=== PATIENT | male | born 1980 | race African-American/Black ===

== ENCOUNTER 2020-03-01 15:35 | Emergency (ER) | payer SELFPAY ==
[~2020-03-01] VITALS: Ht 172.7 cm; Wt 95.4 kg
[2020-03-01] MEDS ORDERED: IV NORMAL SALINE 1,000ML 1,000 ML IV ONE (16:00)
[2020-03-01 16:09] VITALS: BP 146/89
--- NOTE | 2020-03-02 13:04 | PHYS DOC ---
Past History Past Medical History: Other Additional Past Medical Histor: Unable to assess at this time. Past Surgical History: Other Additional Past Surgical Histo: unable to assess at this time. Alcohol Use: None Additional Alcohol Information: Unable to assess at this time Social History Narrative: Unable to assess at this time General Adult EDM: Chief Complaint: ALTERED MENTAL STATUS HPI: HPI: 39-year-old male presents via EMS with altered mental status. I was unable to interview the patient because he left AMA prior to my seeing him. From what I observed, he was uncooperative, mildly belligerent, and intoxicated in some manner. The stated history was that he took Adderall and smokes of marijuana. Review of Systems: Review of Systems: Unable to perform due to AMA Heart Score: Risk Factors: Risk Factors: DM, Current or recent (<one month) smoker, HTN, HLP, family history of CAD, obesity. Risk Scores: Score 0 - 3: 2.5% MACE over next 6 weeks - Discharge Home Score 4 - 6: 20.3% MACE over next 6 weeks - Admit for Clinical Observation Score 7 - 10: 72.7% MACE over next 6 weeks - Early Invasive Strategies Current Medications: Current Meds: Current Medications Medications (Trade) Dose Ordered Sig/Nathan Start Time Stop Time Status Last Admin Dose Admin Sodium Chloride 1,000 ml @ 1,000 mls/hr 1X ONCE 03/01/20 16:00 03/01/20 16:36 DC Allergies: Allergies: Allergies Coded Allergies Type Severity Reaction Last Updated Verified No Known Drug Allergies 03/01/20 No Physical Exam: PE: Patient left AMA Current Patient Data: Vital Signs: Vital Signs Date Time Temp Pulse Resp B/P (MAP) Pulse Ox O2 Delivery O2 Flow Rate FiO2 03/01/20 16:09 122 16 146/89 (108) 96 Room Air EKG: EKG: [] Radiology/Procedures: Radiology/Procedures: [] Course & Med Decision Making: Course & Med Decision Making Pertinent Labs and Imaging studies reviewed. (See chart for details) [] Dragon Disclaimer: [place]isl[place] Disclaimer: This electronic medical record was generated, in whole or in part, using a voice recognition dictation system. Departure Departure: Impression: Primary Impression: Patient left without being seen Disposition: AGAINST MEDICAL ADVICE Condition: LEFT WITHOUT BEING SEEN Referrals: PCP,NO (PCP) Justification of Admission: Justification of Admission: Justification of Admission Dx: N/A RAMOS PARIS DO Mar 02, 2020 13:04
== END 2020-03-01 16:30 | disposition left against medical advice (07) ==
LOC: ER 15:35 → EDBD 15:35 → ER 16:30
DX: R41.82 Altered mental status, unspecified (principal); Z53.21 Procedure and treatment not carried out due to patient leaving prior to being seen by health care provider

== ENCOUNTER 2020-03-01 17:25 | Emergency (ER) | payer SELFPAY ==
[~2020-03-01] VITALS: Ht 172.7 cm; Wt 95.4 kg
--- NOTE | 2020-03-01 19:10 | PHYS DOC ---
Past History Past Medical History: High Cholesterol, Other Additional Past Medical Histor: ADHD Past Surgical History: No Surgical History Additional Past Surgical Histo: unable to assess at this time. Alcohol Use: None Social History Narrative: CBD Adult General Chief Complaint Chief Complaint: ALTERED MENTAL STATUS HPI HPI Patient is a 39-year-old male who presents for second time at our ER today for evaluation. Per prior documentation and report from nursing staff and local EMS personnel, patient is from [facility] and travels out to local region often to abuse cannabinoids and other illicit substances. Patient was poor his [place] out an area doing such thing today when on an abnormal behavior prompted bystanders with him to call EMS for transport here for evaluation. Patient el oped/left AMA prior in the day. Nonetheless, patient re-presented today via EMS after being found by bystanders with concern for delirium/AMS. Patient combative with EMS personnel in route. No medications were administered. Patient met by in our ER and nonverbal at present. reports patient is not at baseline, denies ever seeing patient like this. She confirms his history of cannabinoid and other illicit drug abuse. She is unsure of series of events today, she is unsure other individuals patient was engaging in drug use with today Review of Systems Review of Systems Unobtainable given patient's delirium and inability to cooperate with examination Allergies Allergies Allergies Coded Allergies Type Severity Reaction Last Updated Verified No Known Drug Allergies 03/01/20 No Physical Exam Physical Exam Constitutional: Well developed, well nourished, no acute distress, non-toxic appearance. Nonverbal, appears acutely intoxicated HENT: Normocephalic, atraumatic, bilateral external ears normal, oropharynx dry, no oral exudates, nose normal. Eyes: PERRLA, EOMI, conjunctiva normal, no discharge. Neck: Normal range of motion, supple, no stridor. Cardiovascular: Sinus tachycardia per monitor Lungs & Thorax: Bilateral chest rise Abdomen: No visual abnormalities, ambulatory without issue, no obturator sign or heel strike Skin: Warm, dry, no erythema, no rash. Extremities: No cyanosis, no clubbing, no edema. Neurologic: Alert and disoriented, grossly normal motor & sensory function, no focal deficits noted. Unremarkable gait Psychologic: Flat affect, depressed mood, impaired judgment at present given delirious state Current Patient Data Vital Signs Vital Signs Date Time Temp Pulse Resp B/P (MAP) Pulse Ox O2 Delivery O2 Flow Rate FiO2 03/01/20 17:40 99.4 120 16 150/72 (98) 97 Room Air Lab Results Laboratory Tests Test 03/01/20 22:08 03/01/20 22:12 Urine Collection Type Unknown Urine Color Yellow Urine Clarity Clear Urine pH 5.5 Urine Specific [place] >=1.030 Urine Protein Trace (NEG-TRACE) Urine Glucose (UA) Neg mg/dL (NEG) Urine Ketones (Stick) Trace mg/dL (NEG) Urine Blood Trace (NEG) Urine Nitrite Neg (NEG) Urine Bilirubin Neg (NEG) Urine Urobilinogen Dipstick 0.2 mg/dL (0.2 mg/dL) Urine Leukocyte Esterase Neg (NEG) Urine RBC 0 /HPF (0-2) Urine WBC Occ /HPF (0-4) Urine Squamous Epithelial Cells Occ /LPF Urine Bacteria 0 /HPF (0-FEW) Urine Opiates Screen Neg (NEG) Urine Methadone Screen Neg (NEG) Urine Barbiturates Neg (NEG) Urine Phencyclidine Screen Neg (NEG) Urine Amphetamine/Methamphetamine Pos (NEG) Urine Benzodiazepines Screen Neg (NEG) Urine Cocaine Screen Neg (NEG) Urine Cannabinoids Screen Pos (NEG) Urine Ethyl Alcohol Neg (NEG) White Blood Count 5.7 x10^3/uL (4.0-11.0) Red Blood Count 4.78 x10^6/uL (4.30-5.70) Hemoglobin 14.9 g/dL (13.0-17.5) Hematocrit 44.2 % (39.0-53.0) Mean Corpuscular Volume 93 fL (79-100) Mean Corpuscular Hemoglobin 31 pg (25-35) Mean Corpuscular Hemoglobin Concent 34 g/dL (31-37) Red Cell Distribution Width 13.1 % (11.5-14.5) Platelet Count 241 x10^3/uL (140-400) Neutrophils (%) (Auto) 62 % (31-73) Lymphocytes (%) (Auto) 32 % (24-48) Monocytes (%) (Auto) 6 % (0-9) Eosinophils (%) (Auto) 0 % (0-3) Basophils (%) (Auto) 0 % (0-3) Neutrophils # (Auto) 3.5 x10^3uL (1.8-7.7) Lymphocytes # (Auto) 1.8 x10^3/uL (1.0-4.8) Monocytes # (Auto) 0.3 x10^3/uL (0.0-1.1) Eosinophils # (Auto) 0.0 x10^3/uL (0.0-0.7) Basophils # (Auto) 0.0 x10^3/uL (0.0-0.2) Sodium Level 137 mmol/L (136-145) Potassium Level 3.9 mmol/L (3.5-5.1) Chloride Level 99 mmol/L (98-107) Carbon Dioxide Level 26 mmol/L (21-32) Anion Gap 12 (6-14) Blood Urea Nitrogen 15 mg/dL (8-26) Creatinine 1.4 mg/dL (0.7-1.3) Estimated GFR (Cockcroft-Gault) 69.0 BUN/Creatinine Ratio 11 (6-20) Glucose Level 99 mg/dL (70-99) Calcium Level 9.6 mg/dL (8.5-10.1) Magnesium Level 2.5 mg/dL (1.8-2.4) Total Bilirubin 0.3 mg/dL (0.2-1.0) Aspartate Amino Transf (AST/SGOT) 93 U/L (15-37) Alanine Aminotransferase (ALT/SGPT) 48 U/L (16-63) Alkaline Phosphatase 75 U/L (46-116) Ammonia < 10 mcmol/L (11-34) Creatine Kinase 7145 U/L (39-308) Troponin I Quantitative 0.017 ng/mL (0-0.055) DX-Ozm-L-Type Natriuretic Peptide 51 pg/mL (0-124) Total Protein 8.6 g/dL (6.4-8.2) Albumin 4.3 g/dL (3.4-5.0) Albumin/Globulin Ratio 1.0 (1.0-1.7) EKG EKG EKG ordered and interpreted by myself at 1908 hrs. as sinus tachycardia at 117 bpm, unremarkable intervals, no axis deviation, T wave inversions seen in leads V4 and V5, limited EKG as patient was moving during its entirety, unable to capture lead V6 Radiology/Procedures Radiology/Procedures PROCEDURE: PORTABLE CHEST 1V Exam: Chest one view INDICATION: Altered mental status TECHNIQUE: Frontal view of the chest Comparisons: None FINDINGS: The cardiomediastinal silhouette and pulmonary vessels are within normal limits. The lung and pleural spaces are clear. IMPRESSION: No acute cardiopulmonary process. Electronically signed by: Gutierrez Maradiaga MD (03/01/2020 7:51 PM) [id number] PROCEDURE: CT HEAD WO CONTRAST Exam: CT head INDICATION: Altered mental status TECHNIQUE: Sequential axial images through the head were obtained without the administration of IV contrast. Comparisons: None FINDINGS: No focal parenchymal lesion or hemorrhage is identified. There is no midline shift or sulcal effacement. No acute vascular territory infarction is identified. Auguste-white distinction is preserved. The ventricular system is within normal limits without compression hydrocephalus. The basal cisterns are well maintained. The visualized portions of the paranasal sinuses and mastoid air cells are well-pneumatized. No acute fractures. IMPRESSION: No acute intracranial abnormality. Exposure: One or more of the following in the visualized dose reduction techniques were utilized for this examination: 1. Automated exposure control 2. Adjustment of the MA and/or KV according to patient size Use of iterative of reconstructive technique Electronically signed by: Gutierrez Maradiaga MD (03/01/2020 10:08 PM) [id number] Course & Med Decision Making Course & Med Decision Making Ambulatory yet voluntarily nonverbal patient seen on immediate ER arrival ABCs non-concerning Limited history obtained given patient's nonverbal status and likely delirium versus intoxication. Limited physical exam obtained given fear patient would inflict harm on myself and other medical personnel Discussed with who is present my diagnostic plan to work-up patient's delirium. Discussed I wanted to rule out any infectious causes, to rule out potential psychosis, or other causes such as illicit substance abuse Patient remained noncompliant throughout visit. With that said, patient's mentation improved greatly throughout ER observation. Patient was agreeable to have select diagnostic studies obtained I discussed findings with patient and , discuss low concern for infectious etiology, discussed most likely diagnoses of acute illicit drug intoxication versus acute psychosis Discussed I would like to continue medical work-up and treatment of patient's rhabdomyolysis likely due to to illicit drug abuse in inpatient setting Nonetheless, patient eloped from ER in middle of continued ER work-up leaving his here at the ER. I discussed plan of care and recommended future plan of care regarding patient with once she finds him, she reported good understanding I educated on local resources and plans of care if she finds patient and is worried for harm of self or others, she reported good understanding with this as well Dragon Disclaimer Dragon Disclaimer This electronic medical record was generated, in whole or in part, using a voice recognition dictation system. Departure Departure: Impression: Primary Impression: Delirium due to dissociative drug Disposition: 07 AGAINST MEDICAL ADVICE (Eloped) Condition: STABLE (He eloped prior to complete medical work-up) Referrals: PCP,NO (PCP) Justification of Admission: Justification of Admission: Justification of Admission Dx: N/A BEBO RUIZ DO Mar 01, 2020 19:10
--- NOTE | 2020-03-01 19:54 | RAD ---
Exam: Chest one view INDICATION: Altered mental status TECHNIQUE: Frontal view of the chest Comparisons: None FINDINGS: The cardiomediastinal silhouette and pulmonary vessels are within normal limits. The lung and pleural spaces are clear. IMPRESSION: No acute cardiopulmonary process. Electronically signed by: Gutierrez Maradiaga MD (03/01/2020 7:51 PM) [id number]
--- NOTE | 2020-03-01 20:07 | EKG ---
[facility] ED [facility] [place] [id number] Test Date: 2020-03-01 Test Time: 18:53:34 Pat Name: KALYAN GÓMEZ Department: Room: Gender: M Web Feeder: RORO : 1980 Requested By: BEBO RUIZ Order Number: [id number] Reading MD: Measurements Intervals [place] Rate: 117 P: 33 ID: [id number] QRS: 54 QRSD: 78 T: 15 QT: 310 QTc: 437 Interpretive Statements Cannot analyze ECG CHEST LEAD(S) MISSING! (Measurements might be questionable) RI6.02 No previous ECG available for comparison
--- NOTE | 2020-03-01 22:11 | RAD ---
Exam: CT head INDICATION: Altered mental status TECHNIQUE: Sequential axial images through the head were obtained without the administration of IV contrast. Comparisons: None FINDINGS: No focal parenchymal lesion or hemorrhage is identified. There is no midline shift or sulcal effacement. No acute vascular territory infarction is identified. Auguste-white distinction is preserved. The ventricular system is within normal limits without compression hydrocephalus. The basal cisterns are well maintained. The visualized portions of the paranasal sinuses and mastoid air cells are well-pneumatized. No acute fractures. IMPRESSION: No acute intracranial abnormality. Exposure: One or more of the following in the visualized dose reduction techniques were utilized for this examination: 1. Automated exposure control 2. Adjustment of the MA and/or KV according to patient size Use of iterative of reconstructive technique Electronically signed by: Gutierrez Maradiaga MD (03/01/2020 10:08 PM) [id number]
[2020-03-01 22:15] VITALS: BP 148/92
[2020-03-01 22:45] LABS: BASO % 0 % (0-3); EOS % 0 % (0-3); HEMATOCRIT 44.2 % (39.0-53.0); HEMOGLOBIN 14.9 g/dL (13.0-17.5); LYMPH # 1.8 x10^3/uL (1.0-4.8); LYMPH % 32 % (24-48); MEAN CORPUSCULAR HEMOGLOBIN 31 pg (25-35); MEAN CORPUSCULAR HGB CONC 34 g/dL (31-37); MEAN CORPUSCULAR VOLUME 93 fL (79-100); MONO # 0.3 x10^3/uL (0.0-1.1); MONO % 6 % (0-9); NEUT # 3.5 x10^3uL (1.8-7.7); NEUT % 62 % (31-73); PLATELET COUNT 241 x10^3/uL (140-400); RED BLOOD COUNT 4.78 x10^6/uL (4.30-5.70); RED CELL DISTRIBUTION WIDTH 13.1 % (11.5-14.5); WHITE BLOOD COUNT 5.7 x10^3/uL (4.0-11.0)
[2020-03-01 22:52] LABS: CALCIUM 9.6 mg/dL (8.5-10.1); CREATININE 1.4 mg/dL (0.7-1.3); POTASSIUM 3.9 mmol/L (3.5-5.1)
[2020-03-01 22:53] LABS: BARBITURATES NEG (NEG); BENZODIAZEPINES NEG (NEG); CANNABINOIDS POS (NEG); COCAINE NEG (NEG); METHADONE NEG (NEG); OPIATES NEG (NEG); PHENCYCLIDINE NEG (NEG)
[2020-03-01 22:54] LABS: AMPHETAMINE/METHAMPHETAMINE POS (NEG)
[2020-03-01 22:59] LABS: BACTERIA,URINE 0 /HPF (0-FEW); BILIRUBIN,URINE NEG (NEG); CLARITY,URINE CLEAR; COLOR,URINE YELLOW; GLUCOSE,URINE NEG (NEG); NITRITE,URINE NEG (NEG); RBC,URINE 0 /HPF (0-2); SQUAMOUS EPITHELIAL CELL,UR OCC /LPF; UROBILINOGEN,URINE 0.2 mg/dL (0.2 mg/dL); WBC,URINE OCC /HPF (0-4)
[2020-03-01 23:09] LABS: ALBUMIN 4.3 g/dL (3.4-5.0); MAGNESIUM 2.5 mg/dL (1.8-2.4); TOTAL BILIRUBIN 0.3 mg/dL (0.2-1.0); TOTAL PROTEIN 8.6 g/dL (6.4-8.2)
== END 2020-03-01 22:53 | disposition left against medical advice (07) ==
LOC: ER 17:25
DX: F12.121 Cannabis abuse with intoxication delirium (principal); E78.00 Pure hypercholesterolemia, unspecified; F90.9 Attention-deficit hyperactivity disorder, unspecified type
CPT/HCPCS: 36415; 70450; 71045; 80053; 80307; 81001; 82140; 82550; 83735; 83880; 84484; 85025; 93005; 99285